=== PATIENT | female | born 1940 | race Caucasian/White ===

== ENCOUNTER 2016-11-03 09:17 | Inpatient (IN) | payer MEDICARE, BC ==
--- NOTE | ~2016-11-03 | OP ---
Record Of Operation [facility] [address] [place]. [address] NAME: LAMAR HOOPER : 38 STATUS : ADM IN PAT#: [id number] AGE: 76 ADM/REG DATE : 11/03/16 MR#: [id number] REPORT SERV DATE: 11/03/16 DICTATED BY: GABRIELE PETERS DATE: 11/03/16 REPORT STATUS : Draft TRANSCRIBED BY: MODL DATE: 11/03/16 DATE OF PROCEDURE: 11/03/2016 PROCEDURE: Left heart catheterization, coronary arteriography, left ventriculography, saphenous vein graft arteriography, left internal mammary arteriography. INDICATION: Chest pain with abnormal nuclear stress test. DESCRIPTION OF PROCEDURE: After informed consent was obtained, the patient was taken in a fasting state to cardiac catheterization laboratory where she was prepped and draped in sterile fashion. Conscious sedation was obtained using intravenous Versed and fentanyl. The right inguinal region was anesthetized using 1% Xylocaine. The right femoral artery was then entered using a front-wall approach and cannulated with a 6-Bulgarian arterial sheath. A 6-Bulgarian JR4 diagnostic catheter was then used to engage the left internal mammary artery. Serial angiograms were obtained. This catheter was then used to engage the saphenous vein graft to the first diagonal artery. Serial angiograms of this vessel were obtained. This catheter was then exchanged for a 6-Bulgarian Oleg right catheter, which was used to engage the [place] right coronary artery. Serial angiograms of this vessel were obtained. This catheter was then exchanged for a 6-Bulgarian multipurpose catheter, which was used to engage the saphenous vein graft to the distal right coronary artery. Serial angiograms of this vessel were obtained. This catheter was then exchanged for a 6-Bulgarian JL4 diagnostic catheter, which was used to engage the left main coronary artery. Serial angiograms of this vessel were obtained. This catheter was then exchanged for a 6-Bulgarian angled pigtail catheter, which was used across the aortic valve at which time a left ventriculogram was performed. The catheter was then withdrawn back across the aortic valve with no significant aortic transvalvular gradient. Results of study are as follows: HEMODYNAMICS: Aorta 160/55 with a mean pressure of 94 mmHg. Left ventricle 160/14 with an end-diastolic pressure of 28 mmHg. CORONARY ANATOMY: 1. Left main coronary artery: The left main coronary artery arises normally from left coronary cusp. This vessel has a 40%-50% ostial stenosis. 2. Left anterior descending artery: The left anterior descending artery arises normally from left main coronary artery. This vessel is diffusely diseased in the proximal segment to 80%. 3. Saphenous vein graft to first diagonal artery is widely patent. The first diagonal artery is a very large vessel, which fills the remainder of the LAD retrograde. 4. The CELESTIN to the mid LAD is a small atretic vessel, which is patent but of limited functional flow. 5. Left circumflex artery: The left circumflex artery arises normally from the left main coronary artery. This is a small and diffusely diseased nondominant vessel. There is a 60%-70% proximal stenosis. The distal vessel including the second obtuse marginal arteries are subtotally occluded. This vessel is small and diffusely diseased and not amenable to PCI. 6. Right coronary artery: The right coronary artery arises normally from the right Record Of Operation [place] [id number] [facility] [place]. [address] NAME: LAMAR HOOPER Edwin : 36 STATUS : ADM IN [facility]#: [id number] AGE: 76 ADM/REG DATE : 11/03/16 MR#: [id number] REPORT SERV DATE: 11/03/16 DICTATED BY: GABRIELE PETERS DATE: 11/03/16 REPORT STATUS : Draft TRANSCRIBED BY: FERMIN DATE: 11/03/16 coronary cusp. This vessel is dominant. This vessel has a discrete 80% mid vessel stenosis after the takeoff of the RV branch. 7. The saphenous vein graft to the distal right coronary artery is widely patent with VERÓNICA- 3 grade flow. LEFT VENTRICULOGRAM: Left ventriculogram was performed, which shows normal symmetric left ventricular contractility and an ejection fraction of 60%. There is mild mitral insufficiency. COMPLICATIONS: There were no apparent complications. CONCLUSIONS: 1. Severe multivessel [place] coronary artery disease as described above. 2. Widely patent saphenous vein graft to first diagonal artery providing retrograde filling of the remainder of the LAD. 3. Atretic CELESTIN to mid LAD of minimal functional value. 4. Widely patent saphenous vein graft to the distal right coronary artery. 5. Normal left ventricular systolic function with mild mitral insufficiency. 6. Plan is made for continued medical management and risk factor/lifestyle modification. SA/NIGELL Gabriele Peters M.D., [facility] / [id number] CC: Gabriele Peters M.D., [facility] Elma Banks NP
--- NOTE | ~2016-11-03 | CN ---
Consultation Report [facility] [address] [place]. [address] NAME: LAMAR HOOPER : 38 STATUS : ADM IN PAT#: [id number] AGE: 76 ADM/REG DATE : 11/03/16 MR#: [id number] REPORT SERV DATE: 11/05/16 DICTATED BY: DATE: REPORT STATUS : Draft TRANSCRIBED BY: MODL DATE: 11/04/16 NEUROLOGY CONSULTATION DATE OF CONSULTATION: 11/04/2016 REASON FOR CONSULT: Hallucination. HISTORY OF PRESENT ILLNESS: This is a 76-year-old female who presented to [facility] on 11/03/2016 as a transfer from [facility] as the patient was noted to have shortness of breath. The patient was also noted to have chest discomfort and the patient was transferred for cardiac catheterization. The patient was noted to have multivessel disease but surgery was not recommended, instead the patient was recommended to be on maximum medical therapy. The patient at baseline was noted to have a history of seizure disorder consisting of stroke like symptoms with the focal weakness that lasted for about 4 to 5 minutes and spontaneously resolved. The patient was on carbamazepine as well as the Keppra with the patient's carbamazepine treatment has been ongoing for the past 16 years. The patient has been seizure-free ever since 2003, however, secondary to bradycardia as well as sodium issue, the patient's carbamazepine was discontinued by the hospitalist with the agreement from pneumatic deicer inspector. Since cardiac catheterization on 11/03/2016, family reports the patient will have shortness of breath episode, feels like she is struggling to breathe despite normal oxygen saturation as well as breath sound. The patient when closing her eyes will noted to have vivid hallucination consist of scenery as well as the people which resolve when patient opens her eye. The patient otherwise denies any visual deficits or vision abnormalities with her eyes open and family and patient denies any focal weakness or numbness and denies any dysarthria. The patient does appear to be anxious during the evaluation with her overall health issues with the family reports the patient does appear to be slightly anxious although patient denies this. The patient was not noted to have any previous history of manic episodes or schizophrenic symptoms though she did have episode of hallucination x1 after open heart surgery in the past. At that time, it was attributed to high dosage of carbamazepine, and the patient reports resolution of the symptoms after carbamazepine dosage adjustment. The patient does not have any recent neurology evaluation and is not currently followed by Neurology for seizure. Prior to the hospitalization, the patient was noted to have chest pain and shortness of breath but otherwise no recent illness, fever, chills, nausea, vomiting, prior to the hospitalization. The patient's medication was apparently adjusted during the hospital following which the patient was taken off carbamazepine, and the patient's blood pressure medication was subsequently adjusted. PAST MEDICAL HISTORY: The patient was noted to have apparently fairly extensive past medical history that consists of coronary artery disease status post coronary artery bypass surgery as well as recently coronary artery catheterization for which multivessel diseases were found, and the patient was recommended to maximize medical therapy. The patient, in addition, was noted to have hypertension, hyperlipidemia, hypothyroidism as well as thyroid cyst, history of seizure disorder with concern of possible meningitis in the past, and the patient was noted to have no seizure since 2003. The patient does have a history of a Consultation Report [address] [address] NAME: LAMAR HOOPER : 36 STATUS : ADM IN [facility]#: [id number] AGE: 76 ADM/REG DATE : 11/03/16 MR#: [id number] REPORT SERV DATE: 11/05/16 DICTATED BY: DATE: REPORT STATUS : Draft TRANSCRIBED BY: FERIMN DATE: 11/04/16 carbamazepine and Keppra usage with carbamazepine recently stopped secondary to heart rhythm issue as well as sodium issue. She has had previous therapy for seizure with Dilantin which the patient has to discontinue secondary to side effect as well as rash. The patient also has had history of a knee replacement and shoulder surgery in the past. SOCIAL HISTORY: The patient denies regular tobacco usage. Denies alcohol usage and denies illicit drug usage. FAMILY HISTORY: Significant for stroke. The patient's granddaughter does have anxiety attacks at times. REVIEW OF SYSTEMS: Negative except for those mentioned in the HPI. ALLERGIES: THE PATIENT WAS NOTED TO HAVE ALLERGY TO SULFA MEDICATION WELL KEFLEX AND ERYTHROMYCIN. MEDICATIONS: The patient's hospital medications consist of Keppra as well as Cozaar, Norvasc, Plavix, and Synthroid. PHYSICAL EXAMINATION: VITAL SIGNS: At time of evaluation, patient was noted to have T-max of 98.7, heart rate of 47 to 67, respiration of 13 to 22, and blood pressure of 119 to 191 over 56 to 75. GENERAL: The patient is well developed, well nourished, in no acute distress. CARDIOVASCULAR EXAMINATION: Regular rate and rhythm. No carotid bruits were otherwise auscultated. PULMONARY EXAMINATION: Clear to auscultation bilaterally. NEUROLOGICAL EXAMINATION: Generally, the patient is alert and oriented to person, place, year, and month. Follows simple and 2-step commands. The patient is also oriented to date, follows simple and 2-step commands. No dysarthria. No aphasia. Intact registration and recall. The patient was noted to have mild pressured speech, was noted to be mildly anxious and very concerned regarding her own health and will insist on providing somewhat excessive information regarding previous health information as well as medical history but otherwise, answering questions appropriately. The patient was noted to have pupils equal, round, and reactive to light. Extraocular eye movement was noted to be intact with intact peripheral vision. The patient reports closing her eyes causing her to see "[place] [facility]" followed by flower field as well as butterflies as well and then return to [facility] [place] again. Also, when patient opens her eyes, hallucination seems to resolve. The patient otherwise demonstrates symmetrical facial expression and sensation, midline tongue, normal palatal movement, mild decreased hearing at the time of evaluation. The patient demonstrated 5/5 left upper extremity and bilateral lower extremity proximally and distally. The patient does demonstrate decreased range of motion in the right upper extremity shoulder but is able to demonstrate 5/5 right upper extremity distal strength as well as resist resistance with right upper extremity extensor muscles. The patient reports symmetrical sensation, was noted to have diminished reflexes throughout. Normal [id number] Consultation Report [facility] [address] [facility] [place]. [address] NAME: LAMAR HOOPER : 36 STATUS : ADM IN PAT#: [id number] AGE: 76 ADM/REG DATE : 11/03/16 MR#: [id number] REPORT SERV DATE: 11/05/16 DICTATED BY: DATE: REPORT STATUS : Draft TRANSCRIBED BY: MODL DATE: 11/04/16 examination without ataxia. Downgoing toe on bilateral plantar reflexes. Gait was not evaluated secondary to complaints of shortness of breath. LABORATORY STUDIES: At the time of evaluation, patient's laboratory study demonstrated white blood cell count of 9.0, hemoglobin of 11.2, hematocrit of 31.9, and platelet count of 252. Chemistry panel; sodium 135, potassium 4.2, chloride 98, bicarb 31, BUN of 13, creatinine 0.91, glucose of 131. calcium of 9.0. No neuro imaging was otherwise obtained at the time of evaluation. IMPRESSION: 1. Visual hallucination. No clear visual deficit was noted on examination by family or the patient. The patient described vivid hallucination noted mostly with eye closure and associated feeling of dyspnea. The patient does appear to be somewhat anxious and very concerned regarding her health issues as well as whether or not there is anything serious underlying her symptoms. At this time, concern for possible anxiety secondary to recent cessation of carbamazepine. We will start the patient on trial of Lamictal 25 mg p.o. daily. We will continue Keppra at this time. We will obtain laboratory studies. The patient is very adamant that she does not want to undergo MRI secondary to anxiety issue and as a result, we will also check CT scan of the brain without contrast. RECOMMENDATION: 1. Continue Keppra. 2. Lamictal 25 mg p.o. daily. 3. Ammonia, TSH, free T4, vitamin B12, folate, thiamine with morning labs. 4. CT scan of the brain without contrast. [facility]/MODL Chris Bell MD / [id number] CC: Gabriele Juan M.D., [facility]
[~2016-11-03 09:17] MED LIST: EPITOL200 MG PO; HYZAAR 100/25 T1 TAB PO; KEPPRA750 MG PO; LEVOTHYROXIN125 MCG PO; LOP25 PO; PEP20 PO; PLAVIX PO; V5 PO; ZBETA10 PO; ZETIA PO
[2016-11-04 09:28] LABS: BASOPHILS 0.1 %; BASOPHILS ABSOLUTE 0.01 10/3/uL (0.0-0.16); EOSINOPHILS 0.8 %; EOSINOPHILS ABSOLUTE 0.07 10/3/uL (0.0-0.53); HEMATOCRIT 31.9 % (36.0-48.0); HEMOGLOBIN 11.2 g/dL (12.0-16.0); IMMATURE GRANULOCYTES 0.2 %; IMMATURE GRANULOCYTES ABSOLUTE 0.02 10/3/uL (0.0-0.11); LYMPHOCYTES 19.2 %; LYMPHOCYTES ABSOLUTE 1.72 10/3/uL (0.67-4.30); MANUAL DIFF NO %; MEAN CORPUS HGB CONC 35.1 g/dL (32.0-36.0); MEAN CORPUSCULAR HEMOGLOB 30.9 pg (26.0-34.0); MEAN CORPUSCULAR VOLUME 87.9 fL (80-100); MONOCYTES 9.1 %; MONOCYTES ABSOLUTE 0.82 10/3/uL (0.21-1.20); NEUTROPHILS 70.6 %; NEUTROPHILS ABSOLUTE 6.34 10/3/uL (2.02-8.40); PLATELET COUNT 252 10/3/uL (150-400); RBC DISTRIBUTION WIDTH 12.5 % (12.0-16.0); RED CELL COUNT 3.63 10/6/uL (4.0-5.6)
[2016-11-04 09:40] LABS: BUN (BLOOD UREA NITROGEN) 13 MG/DL (6-23); CHLORIDE, SERUM 98 MMOL/L (96-112); CO2 (CARBON DIOXIDE) 31 MMOL/L (24-34); CREATININE 0.91 MG/DL (0.55-1.02); GFR AFRICAN AMERICAN 70 ML/MIN (>=60); GFR NON AFRICAN AMERICAN 60 ML/MIN (>=60); GLUCOSE, SERUM 131 MG/DL (60-99); POTASSIUM, SERUM 4.2 MMOL/L (3.5-5.3); SODIUM, SERUM 135 MMOL/L (135-148)
[2016-11-05 06:13] LABS: BASOPHILS 0.3 %; BASOPHILS ABSOLUTE 0.03 10/3/uL (0.0-0.16); EOSINOPHILS 1.7 %; EOSINOPHILS ABSOLUTE 0.15 10/3/uL (0.0-0.53); HEMATOCRIT 33.9 % (36.0-48.0); HEMOGLOBIN 11.7 g/dL (12.0-16.0); IMMATURE GRANULOCYTES 0.5 %; IMMATURE GRANULOCYTES ABSOLUTE 0.04 10/3/uL (0.0-0.11); LYMPHOCYTES 23.2 %; MEAN CORPUS HGB CONC 34.5 g/dL (32.0-36.0); MEAN CORPUSCULAR HEMOGLOB 30.4 pg (26.0-34.0); MEAN CORPUSCULAR VOLUME 88.1 fL (80-100); MEAN PLATELET VOLUME 8.8 fL (9.2-13.0); MONOCYTES 12.1 %; MONOCYTES ABSOLUTE 1.04 10/3/uL (0.21-1.20); NEUTROPHILS 62.2 %; NEUTROPHILS ABSOLUTE 5.35 10/3/uL (2.02-8.40); PLATELET COUNT 277 10/3/uL (150-400); RBC DISTRIBUTION WIDTH 12.2 % (12.0-16.0); RED CELL COUNT 3.85 10/6/uL (4.0-5.6); WHITE BLOOD CELLS 8.6 10/3/uL (4.5-10.5)
[2016-11-05 06:19] LABS: MANUAL DIFF NO %
[2016-11-05 06:58] LABS: BUN (BLOOD UREA NITROGEN) 12 MG/DL (6-23); CALCIUM, SERUM 9.5 MG/DL (8.5-10.4); CHLORIDE, SERUM 100 MMOL/L (96-112); CO2 (CARBON DIOXIDE) 28 MMOL/L (24-34); CREATININE 0.78 MG/DL (0.55-1.02); FREE T4 1.17 NG/DL (0.76-1.46); GFR AFRICAN AMERICAN 84 ML/MIN (>=60); GFR NON AFRICAN AMERICAN 73 ML/MIN (>=60); GLUCOSE, SERUM 97 MG/DL (60-99); POTASSIUM, SERUM 4.2 MMOL/L (3.5-5.3); SODIUM, SERUM 136 MMOL/L (135-148)
[2016-11-05 06:59] LABS: FOLATE 34.3 NG/ML (>5.2)
[2016-11-05] MEDS ORDERED: NORV10 PO (10:32)
[2016-11-05] MEDS ORDERED: HALF81 PO (10:36)
[2016-11-05] MEDS ORDERED: LAMICTAL25 PO (14:49)
[2016-11-07 19:05] LABS: THIAMINE 7.7 nmol/L (()); THIAMINE MONOPHOSPHATE 2.9 nmol/L (())
[2017-01-30] MEDS ORDERED: ZETIA PO (20:09)
[2017-01-30] MEDS ORDERED: LAMICTAL25 PO (20:09)
[2017-01-30] MEDS ORDERED: OCEAN NAS (20:09)
[2017-01-30] MEDS ORDERED: PLAVIX PO (20:09)
[2017-01-30] MEDS ORDERED: NORV10 PO (20:10)
[2017-01-30] MEDS ORDERED: SYN1 PO (20:10)
[2017-01-30] MEDS ORDERED: HYDROMET SYRUP PO (20:10)
[2017-01-30] MEDS ORDERED: VITC500 PO (20:11)
[2017-01-30] MEDS ORDERED: OS500+D PO (20:11)
[2017-01-30] MEDS ORDERED: VITAMIN D2000 UNIT PO (20:12)
[2017-01-30] MEDS ORDERED: HYZAAR 100/25 T1 TAB PO (20:12)
[2017-01-30] MEDS ORDERED: HALF81 PO (20:13)
[2017-01-30] MEDS ORDERED: KEPPRA750 MG PO (20:13)
[2017-01-30] MEDS ORDERED: PEP20 PO (20:14)
[2017-01-30] MEDS ORDERED: V5 PO (20:14)
[2017-01-30] MEDS ORDERED: NORCO1 TAB PO (20:18)
[2017-02-05] MEDS ORDERED: NORV5 PO (10:16)
[2017-02-05] MEDS ORDERED: CIP2 PO (10:16)
== END 2016-11-05 17:52 | disposition home or self-care (01) | DRG 287 ==
LOC: CORLMH 09:17 → SSU1 09:19 → 6NO 18:31
PROVIDERS: Internal Medicine Interventional Cardiology; Psychiatry & Neurology Neurology
PROC: 4A023N7 Measurement of Cardiac Sampling and Pressure, Left Heart, Percutaneous Approach (ICD-10-PCS; principal; 2016-11-03)
PROC: B2131ZZ Fluoroscopy of Multiple Coronary Artery Bypass Grafts using Low Osmolar Contrast (ICD-10-PCS; 2016-11-03)
PROC: B2111ZZ Fluoroscopy of Multiple Coronary Arteries using Low Osmolar Contrast (ICD-10-PCS; 2016-11-03)
PROC: B2181ZZ Fluoroscopy of Left Internal Mammary Bypass Graft using Low Osmolar Contrast (ICD-10-PCS; 2016-11-03)
PROC: B2151ZZ Fluoroscopy of Left Heart using Low Osmolar Contrast (ICD-10-PCS; 2016-11-03)
DX: I25.10 Atherosclerotic heart disease of native coronary artery without angina pectoris (principal); E22.2 Syndrome of inappropriate secretion of antidiuretic hormone; R00.1 Bradycardia, unspecified; G40.909 Epilepsy, unspecified, not intractable, without status epilepticus; E87.1 Hypo-osmolality and hyponatremia; R07.9 Chest pain, unspecified; F41.9 Anxiety disorder, unspecified; R44.1 Visual hallucinations; I10 Essential (primary) hypertension; K21.9 Gastro-esophageal reflux disease without esophagitis; E78.2 Mixed hyperlipidemia; T44.7X5A Adverse effect of beta-adrenoreceptor antagonists, initial encounter; E03.9 Hypothyroidism, unspecified; Z96.659 Presence of unspecified artificial knee joint; Z82.3 Family history of stroke; Z88.2 Allergy status to sulfonamides; Z88.1 Allergy status to other antibiotic agents; Z79.02 Long term (current) use of antithrombotics/antiplatelets; Z95.1 Presence of aortocoronary bypass graft
CPT/HCPCS: 70450; 71010; 78452; 80048; 80069; 80076; 82140; 82533; 82607; 82746; 82962; 83690; 83735; 83930; 84425; 84439; 84443; 84484; 85025; 85379; 85610; 85730; 93005; 93017; 93459; 96372; 96374; 99152; 99153; 99291; A9270-GY; A9502; C1769; C1894; J1940; J2250; J2405; J2785; J3010; J3230; Q9967